=== PATIENT | female | born 1955 | race Caucasian/White ===

== ENCOUNTER 2021-09-05 16:31 | Outpatient (REF) | payer OTHER, SELFPAY ==
--- NOTE | ~2021-09-05 | XR_ITS ---
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 FINDINGS: No significant abnormality is noted involving the heart, lungs, mediastinum, or soft tissues. There is scoliosis of the thoracic spine convex right. XR/XR chest 2V IMPRESSION: No acute disease.
[2021-09-05 18:01] LABS: Alanine Aminotransferase 20 U/L (0-31); Albumin Level 4.3 g/dL (3.5-5.0); Alkaline Phosphatase 87 U/L (39-117); Anion Gap 14 (12-20); Aspartate Amino Transferase 18 U/L (5-31); Bilirubin Total 1.3 mg/dL (0.0-1.0); Blood Urea Nitrogen 13 mg/dL (9-16); C Reactive Protein 0.63 mg/dL (< or = 0.50); Calcium 10.7 mg/dL (8.4-10.2); Carbon Dioxide 30 mmol/L (22-29); Chloride 101 mmol/L (96-108); Estimated Glomerular Filt Rate > 60; Glucose Random 93 mg/dL (60-115); Iron 35 mcg/dL (30-160); Percent Iron Saturation 10 % (15-50); Potassium 4.5 mmol/L (3.3-5.1); Sodium 140 mmol/L (135-145); Total Iron Binding Capacity 365 mcg/dL (228-428); Total Protein 7.5 g/dL (6.5-8.0); Unsaturated Iron Binding 330 ug/dL
[2021-09-05 18:13] LABS: Erythrocyte Sedimentation Rate 5 MM/HR (0-20)
[2021-09-05 18:15] LABS: Ferritin 84 ng/mL (10-250); Free T4 (Free Thyroxine) 0.88 ng/dL (0.71-1.85); Thyroid Stimulating Hormone 1.15 uIU/mL (0.32-4.0)
[2021-09-05 18:48] LABS: Folate 10.6 ng/mL (> or = 4.0); Vitamin B12 215 pg/mL (200-900)
== END 2021-09-05 16:32 | disposition home or self-care (01) ==
LOC: HO.XRAY 16:31
PROVIDERS: PCP Internal Medicine; Visit Provider Physician Assistant
DX: R53.83 Other fatigue (principal); Z86.16 Personal history of COVID-19
CPT/HCPCS: 36415; 71046; 80053; 82306; 82607; 82728; 82746; 83540; 84439; 84443; 85652; 86140

== ENCOUNTER → 2022-07-23 07:49 | Outpatient (REF) | payer SELFPAY ==
--- NOTE | 2022-07-23 07:56 | CA_ITS ---
Acquisition Time: 2022-07-23 08:36:57 Total Exercise Time: 00:06:00 Test Indications: SOB Medications: SEE H Protocol: ROBERT Max HR: 155 BPM 99% of Pred: 156 BPM Max BP: 178/100 mmHG Max Work Load: 7.0 METS Exercise stresst test 6 mins of Robert protocol achieving 98% MPHR with mild SOB, no chest discomfort, with frequent PVCs at baseline and in recovery - resolved with exercise, with normotensive response to exercise 142/98 at baseline and rafaela to 178/100 with exericse, without EKG changes meeting criteria for ischemia. In recovery breathing quickly normalized. Test reviewed with Dr. Abebe. Referred By: Migdalia Hernandez Overread By: NICOLLE ALICEA
--- NOTE | 2022-07-23 07:56 | CA_ITS ---
Transthoracic Echocardiogram Patient (Last, First, Middle): Claudia Denise Anna Gender: Female Date of : 1955 Age: 66 Procedure Date: 07/23/2022 Procedure Type: Transthoracic Echocardiogram Location: OP Height: 160.02 cm Weight: 78.93 kg BSA: 1.82 m2 Heart Rate: 95 bpm Registered Pharmacy Technician: KERLINE Referring MD: Migdalia MARR City Director: Yury Starr MD Symptoms: SOB RO6.02 Study Quality: Adequate ECG Rhythm: NSR with Frequent ventricular premature beats Conclusions: - 1. Low normal LV systolic function with impaired relaxation filling pattern 2. Normal cardiac valvular Doppler 3. Mildly dilated ascending aorta at 3.8 cm 4. No gross pericardial effusion Findings Left Ventricle Normal left ventricular cavity size. There is normal left ventricular wall thickness. The left ventricular systolic function is low normal. The visually estimated ejection fraction is between 50-55%. Spectral Doppler is indicative of an impaired relaxation filling pattern. Right Ventricle Normal right ventricular cavity size and systolic function. Atria The left atrium is normal in size. Interatrial shunt cannot be excluded. The right atrium is normal in size. Aortic Valve The aortic valve structure and function is likely normal. There is no aortic valve stenosis. There is no aortic valve regurgitation. Mitral Valve There is mild anterior and posterior mitral leaflet thickening. There is trace mitral valve regurgitation. There is no mitral valve stenosis. Pulmonic Valve The pulmonic valve is likely normal. Tricuspid Valve Normal tricuspid valve structure. Tricuspid regurgitation envelope is inadequate for calculation of right ventricular systolic pressure. Normal right atrial pressure. Great Vessels The pulmonary artery was not well visualized. There is mild dilatation of the ascending aorta. Venous The inferior vena cava is normal in size and collapses greater than 50% with inspiration. Pericardium/Pleural There is no evidence of pericardial effusion. Prior Study Comparison No prior study available for comparison. Measurements 2D Linear Measurements IVSd: 0.89 0.6-0.9/0.6-1.0 cm LVIDd: 5.08 3.9-5.3/4.2-5.9 cm LVIDd Index: 2.79 2.4-3.2/2.2-3.1 cm/m2 LVIDs: 3.82 2.0-3.6 cm LVPWd: 1.16 0.7-1.1 cm LA Diam: 3.40 2.7-3.8/3.0-4.0 cm LAIDs Index: 1.87 1.5-2.3 cm/m2 LV Mass: 241.10 67-162/88-224 g LV Mass Index: 132.47 43-95/49-115 g/m2 LVOT Diam: 2.20 3.0+(-)1.3 cm 2D Systolic Function EF 4C: 38.20 >55% EF 2C: 57.30 >55% EF BiP: 48.00 >55% Mitral Valve MV Pk E: 0.99 MV PK A: 1.14 MV Decel Time: 141.00 E/A: 0.90 E'Lateral: 6.20 E/E' Lat: 16.00 PHT: 41.00 MVA PHT: 5.37 Decel Cherry: 7.05 Aortic Valve AoV Pk Gt: 1.07 AoV Pk Grad: 5.00 BARBARA: 2.80 LVOT LVOT Pk Gt: 0.77 LVOT Mn Gt: 0.57 LVOT VTI: 0.18 LVOT Pk Grad: 2.00 LVOT Mn Grad: 2.00 LVOT Diam: 2.20 LVOT Area: 3.80 Diastolic Function MV Pk E: 0.99 MV Pk A: 1.14 E/A: 0.90 E' Laterial: 6.20 E/E' Lat: 16.00 Right Ventricle TAPSE (mm): 19.80 TVS' Gt: 11.00 Tricuspid Valve RA Press: 3.00 Great Vessels Aorta Sinus of Valsalva: 3.30 2.0-3.5 cm Ao Asc: 3.80 2.1-3.4 cm Pulmonary Veins Pulm Vein S/D 1.30 Pulmonary Valve PV Pk Gt: 0.81 Peak PV Grad: 3.00 Updated in Other Vendor System with Status of Final Yury Starr MD electronically signed on 07/24/2022 12:49:04 PM with status of Final
== END ==
LOC: HO.CARD 07:49
PROVIDERS: PCP Physician Assistant; Visit Provider Physician Assistant
DX: R06.02 Shortness of breath (principal)
CPT/HCPCS: 93017; 93306

== ENCOUNTER 2023-09-09 15:27 | Outpatient (REF) | payer OTHER, SELFPAY ==
--- NOTE | ~2023-09-09 | US_ITS ---
EXAMINATION: US ABDOMEN LIMITED CLINICAL INFORMATION: Localized swelling under left breast. COMPARISON: None available. TECHNIQUE: Real-time imaging of the left anterior abdominal wall inferior to the left breast FINDINGS: Corresponding to patient indicated site of palpable lump is a complex solid vascular mass measuring 2.8 x 2.3 x 2.2 cm that extends into the skin surface with associated skin thickening. US/US abdomen limited IMPRESSION: Corresponding to patient indicated site of palpable lump is a complex solid vascular mass measuring 2.8 x 2.3 x 2.2 cm that extends into the skin surface with associated skin thickening. This is concerning for neoplastic disease. Recommend tissue sampling for further evaluation.
== END 2023-09-09 15:28 | disposition home or self-care (01) ==
LOC: HO.US 15:27
PROVIDERS: PCP Internal Medicine; Visit Provider Physician Assistant
DX: R22.9 Localized swelling, mass and lump, unspecified (principal)
CPT/HCPCS: 76705